=== PATIENT | female | born 1945 | race Asian ===

== ENCOUNTER 2017-05-05 13:46 | Emergency (ER) | payer MEDICARE, BC ==
[~2017-05-05] VITALS: Wt 51.4 kg
[2017-05-05 13:52] VITALS: Wt 51.4 kg
[2017-05-05] MEDS ORDERED: SOD CHLORIDE 0.9% 1,000 ML IV ONE (15:00)
[2017-05-05] MEDS ORDERED: FAMOTIDINE 20 MG INJ IV ONE (15:00)
[2017-05-05] MEDS ORDERED: DIPHENHYDRAMINE 50 MG INJ IV ONE (15:00)
[2017-05-05] MEDS ORDERED: METHYLPREDNISOLONE 125 MG INJ IV ONE (15:00)
[2017-05-05] MEDS ORDERED: FAMO-18 PO (16:50)
[2017-05-05] MEDS ORDERED: BEN25 PO (16:50)
[2017-05-05 17:02] VITALS: BP 150/72; PULSE 70; RESP 16; TEMP 98.3
--- NOTE | 2017-05-05 17:03 | ERD ---
ER Documentation Chief Complaint Date/Time DATE: 05/05/17 TIME: 17:00 Chief Complaint rash, itchiness HPI This is a 71-year-old female who presents to the ER with a rash that started this morning. Rash is located all over her body and started on bilateral hands. Rash is red and very itchy. Patient denies any lip swelling, tongue swelling, mouth swelling, eyes swelling. Patient denies any difficulty in breathing. She denies any chest pain or shortness of breath. Patient has not been taking any new medications. She took Benadryl earlier today. Patient denies drinking or smoking. ROS 12 point review of systems was done, all negative except per HPI. Medications Home Meds Active Scripts Famotidine* (Pepcid*) 20 Mg Tablet, 20 MG PO BID for 4 Days, TAB Prov:NATALIA WALLACE 05/05/17 Diphenhydramine Hcl* (Benadryl*) 25 Mg Cap, 25 MG PO Q6, #30 CAP Prov:NATALIA WALLACE 05/05/17 Allergies Allergies: Coded Allergies: epinephrine (Verified Allergy, Unknown, 05/05/17) PMhx/Soc History of Surgery: Yes (Colorectomy) Anesthesia Reaction: No Hx Neurological Disorder: No Hx Respiratory Disorders: No Hx Cardiac Disorders: Yes (HTN;Hyperlipidemia) Hx Psychiatric Problems: No Hx Miscellaneous Medical Probl: Yes (DM;Pre-Colon CA) Hx Alcohol Use: No Hx Substance Use: No Hx Tobacco Use: No Physical Exam Vitals Vital Signs Date Time Temp Pulse Resp B/P Pulse Ox O2 Delivery O2 Flow Rate FiO2 05/05/17 14:29 83 171/75 05/05/17 13:52 99.1 82 20 202/73 100 Physical Exam GENERAL: The patient is well developed and appropriate for usual state of health , in no apparent distress. HEENT: Atraumatic. The oropharynx is clear with no erythema or exudates. There is no tongue, lip, eyes swelling. CHEST: Clear to auscultation bilaterally. There are no rales, wheezes or rhonchi. HEART: Regular rate and rhythm. No murmurs, clicks, rubs or gallops. EXTREMITIES:Full range of motion. NEURO: Alert and oriented. SKIN: Patient has a macular red itchy rash all over the body. Results 24 hrs Current Medications Medications (Trade) Dose Ordered Sig/Jerry Route PRN Reason Start Time Stop Time Status Last Admin Dose Admin Sodium Chloride (NS) 1,000 ml @ 1,000 mls/hr Q1H ONCE IV 05/05/17 15:00 05/05/17 15:59 DC 05/05/17 15:16 Diphenhydramine HCl (Benadryl) 50 mg ONCE ONCE IV 05/05/17 15:00 05/05/17 15:01 DC 05/05/17 15:15 Famotidine (Pepcid Iv) 20 mg ONCE ONCE IV 05/05/17 15:00 05/05/17 15:01 DC 05/05/17 15:15 Methylprednisolone Sodium Succinate (Solu-Medrol) 125 mg ONCE ONCE IV 05/05/17 15:00 05/05/17 15:01 DC 05/05/17 15:15 Procedures/MDM Differential Diagnosis: dermatitis, allergic urticaria, viral exanthem, insect bite, fungal infection,viral exanthem, hand foot mouth disease, , impetigo, cellulitis, abscess, stewart darwin syndrome, meningocemia, necrotizing fasciitis. This is a 71-year-old female presents to the ER with a rash. Patient does appear to have an allergic reaction. Patient was treated in the ER with IV Solu-Medrol, Benadryl, famotidine. She was also given some fluids. Upon reexamination rash was completely gone and patient did not have any itchiness. Suspicion for severe allergic reaction is low as patient does not have any angioedema or any difficulty in breathing. Patient's vital signs are stable her blood pressure was elevated to 171/75 in triage, however patient takes medication for blood pressure and has good follow-up. She is on any hypertensive emergency or urgency. Patient will be sent home with Benadryl with famotidine. Patient told me that she was borderline diabetic and I did give her a strong dose of steroids in the ER, I do not believe that using more steroids will be good for her blood sugar. Patient is to follow-up with her primary care doctor within 1-2 days return to ER sooner if symptoms worsen. My medical decision making was shared with the patient she understands and agrees with plan. Departure Diagnosis: Primary Impression: Allergic reaction Condition: Stable Patient Instructions: First Aid: Allergic Reactions Additional Instructions: Call your primary care doctor TOMORROW for an appointment during the next 1-2 days.See the doctor sooner or return here if your condition worsens before your appointment time. NATALIA WALLACE May 05, 2017 17:03
== END 2017-05-05 17:04 | disposition home or self-care (01) ==
LOC: FTE 13:46
DX: R21 Rash and other nonspecific skin eruption (principal); I10 Essential (primary) hypertension; E11.9 Type 2 diabetes mellitus without complications; Z85.038 Personal history of other malignant neoplasm of large intestine
CPT/HCPCS: 96374; 96375; 99284; J1200; J2930